=== PATIENT | female | born 1995 | race African-American/Black ===

== ENCOUNTER → 2017-09-25 | Emergency (ER) | payer MEDICAID ==
[~2017-09-25] VITALS: Ht 165.1 cm; Wt 69.4 kg
[~2017-09-25] MED LIST: CIPRO500 MG PO; IBUPROFEN600 MG ORAL; NKM; NORCO 5-325 TA1 EACH ORAL
[2017-09-25 12:46] LABS: BASOPHILS % (AUTO) 0.7 % (0.0-2.0); EOSINOPHILS % (AUTO) 6.1 % (0.0-3.0); HEMATOCRIT 38.2 % (37.0-47.0); HEMOGLOBIN 12.9 G/DL (12.0-16.0); LYMPHOCYTES % (AUTO) 29.7 % (20.0-45.0); MEAN CORPUSCULAR VOLUME 100 FL (80-99); MONOCYTES % (AUTO) 7.4 % (1.0-10.0); NEUTROPHILS % (AUTO) 56.1 % (45.0-75.0); PLATELET COUNT 151 K/UL (150-450); RED CELL DISTRIBUTION WIDTH 12.4 % (11.6-14.8); WHITE BLOOD COUNT 6.6 K/UL (4.8-10.8)
[2017-09-25 13:00] LABS: ANION GAP 10 mmol/L (5-15); BLOOD UREA NITROGEN 9 mg/dL (7-18); CALCIUM 8.5 MG/DL (8.5-10.1); CARBON DIOXIDE 25 MMOL/L (21-32); CHLORIDE 106 MMOL/L (98-107); CREATININE 0.7 MG/DL (0.55-1.30); POTASSIUM 3.7 MMOL/L (3.5-5.1); SODIUM 141 MMOL/L (136-145)
[2017-09-25 13:05] LABS: ALANINE AMINOTRANSFERASE 24 U/L (12-78); ALBUMIN 3.3 G/DL (3.4-5.0); ALKALINE PHOSPHATASE 59 U/L (46-116); ASPARTATE AMINO TRANSFERASE 16 U/L (15-37); BILIRUBIN,TOTAL 0.2 MG/DL (0.2-1.0)
[2017-09-25 13:12] LABS: APPEARANCE,URINE SLIGHTLY CLOUDY; BILIRUBIN, URINE NEGATIVE (NEGATIVE); GLUCOSE, URINE (UA) NEGATIVE (NEGATIVE); KETONES,URINE NEGATIVE (NEGATIVE); LEUKOCYTE ESTERASE ,URINE 1+ (NEGATIVE); NITRITE,URINE NEGATIVE (NEGATIVE); PH,URINE 8 (4.5-8.0); PROTEIN,URINE 2+ (NEGATIVE); UROBILINOGEN,URINE NORMAL MG/DL (0.0-1.0)
[2017-09-25 13:23] LABS: COLOR,URINE RED
--- NOTE | 2017-09-25 15:27 | Emergency Room Report ---
History of Present Illness General Chief Complaint: Complications Source: Patient Present Illness HPI This patient states she was 5 weeks . She states that she had a miscarriage and went to an outpatient clinic and was given misoprostal. She states that she took the misoprostal 4 days ago. She states that she had been bleeding moderately. However, now she states that she is only bleeding lightly. She states that she has had some cramping. She denies f/c/s, n/v/d, dysuria, hematuria. She has no other complaints. Allergies: Coded Allergies: No Known Allergies (Unverified , 09/12/14) Patient History Past Medical History: asthma Social History: Denies: smoking, alcohol use, drug use Last Menstrual Period: 08/10/17 : 2 Para: 0 Reviewed Nursing Documentation: PMH: Agreed, PSxH: Agreed Nursing Documentation-PMH Past Medical History: No Stated History Review of Systems All Other Systems: negative except mentioned in HPI Physical Exam Vital Signs Date Time Temp Pulse Resp B/P (MAP) Pulse Ox O2 Delivery O2 Flow Rate FiO2 09/25/17 11:15 98.6 74 16 109/67 97 Room Air Sp02 EP Interpretation: reviewed, normal General Appearance: no apparent distress, alert, GCS 15, non-toxic Head: normocephalic, atraumatic Eyes: bilateral eye normal inspection, bilateral eye PERRL ENT: hearing grossly normal, normal pharynx, no angioedema, normal voice Neck: full range of motion, supple/symm/no masses Respiratory: chest non-tender, lungs clear, normal breath sounds, speaking full sentences Cardiovascular #1: regular rate, rhythm, no edema Gastrointestinal: normal bowel sounds, soft, non-distended, no guarding, no rebound, tenderness - mild ttp in suprapubic and lower abdomen Rectal: deferred Musculoskeletal: back normal, gait/station normal, normal range of motion, non- tender Neurologic: alert, oriented x3, responsive, motor strength/tone normal, sensory intact, speech normal Psychiatric: judgement/insight normal, memory normal, mood/affect normal, no suicidal/homicidal ideation Skin: normal color, no rash, warm/dry, well hydrated Medical Decision Making ER Course This patient is s/p SAB. She had complained of cramping and bleeding. I was concerned for retained POC, however, there is no e/o this. The patient's pelvic us show no retained POC. HCG is 153. Laboratory w/u is unremarkable to include no e/o anemia. The patients physical exam was benign. Overall, this patient's evaluation was reassuring. The patient was instructed to f/u closely with the outpatient clinic to trend her HCG down to zero. The patient has disability paperwork that she asked me to fill out. She has no disability. I filled out the paperwork to reflect no disability. She seemed displeased but I am not sure why. She has no disability. The patient was given return precautions and f/u instructions. Laboratory Tests Test 09/25/17 11:20 09/25/17 11:50 Prothrombin Time 10.3 SEC (9.30-11.50) Prothrombin Time INR 1.0 (0.9-1.1) PTT 27 SEC (23-33) Sodium Level 141 MMOL/L (136-145) Potassium Level 3.7 MMOL/L (3.5-5.1) Chloride Level 106 MMOL/L (98-107) Carbon Dioxide Level 25 MMOL/L (21-32) Anion Gap 10 mmol/L (5-15) Blood Urea Nitrogen 9 mg/dL (7-18) Creatinine 0.7 MG/DL (0.55-1.30) Estimate Glomerular Filtration Rate > 60 mL/min (>60) Glucose Level 83 MG/DL (74-106) Calcium Level 8.5 MG/DL (8.5-10.1) Total Bilirubin 0.2 MG/DL (0.2-1.0) Aspartate Amino Transferase (AST) 16 U/L (15-37) Alanine Aminotransferase (ALT) 24 U/L (12-78) Alkaline Phosphatase 59 U/L (46-116) Total Protein 6.5 G/DL (6.4-8.2) Albumin 3.3 G/DL (3.4-5.0) L Globulin 3.2 g/dL Albumin/Globulin Ratio 1.0 (1.0-2.7) Human Chorionic Gonadotropin, Quant 153 mIU/mL (1-6) H White Blood Count 6.6 K/UL (4.8-10.8) Red Blood Count 3.80 M/UL (4.20-5.40) L Hemoglobin 12.9 G/DL (12.0-16.0) Hematocrit 38.2 % (37.0-47.0) Mean Corpuscular Volume 100 FL (80-99) H Mean Corpuscular Hemoglobin 34.0 PG (27.0-31.0) H Mean Corpuscular Hemoglobin Concent 33.8 G/DL (32.0-36.0) Red Cell Distribution Width 12.4 % (11.6-14.8) Platelet Count 151 K/UL (150-450) Mean Platelet Volume 10.0 FL (6.5-10.1) Neutrophils (%) (Auto) 56.1 % (45.0-75.0) Lymphocytes (%) (Auto) 29.7 % (20.0-45.0) Monocytes (%) (Auto) 7.4 % (1.0-10.0) Eosinophils (%) (Auto) 6.1 % (0.0-3.0) H Basophils (%) (Auto) 0.7 % (0.0-2.0) Urine Color Red Urine Appearance Slightly cloudy Urine pH 8 (4.5-8.0) Urine Specific [place] 1.010 (1.005-1.035) Urine Protein 2+ (NEGATIVE) H Urine Glucose (UA) Negative (NEGATIVE) Urine Ketones Negative (NEGATIVE) Urine Occult Blood 5+ (NEGATIVE) H Urine Nitrite Negative (NEGATIVE) Urine Bilirubin Negative (NEGATIVE) Urine Urobilinogen Normal MG/DL (0.0-1.0) Urine Leukocyte Esterase 1+ (NEGATIVE) H Urine RBC 60-80 /HPF (0 - 2) H Urine WBC 2-4 /HPF (0 - 2) Urine Squamous Epithelial Cells Few /LPF (NONE/OCC) Urine Bacteria Few /HPF (NONE) CT/MRI/US Diagnostic Results CT/MRI/US Diagnostic Results : Imaging Test Ordered: Pelvic US Impression Impression: No intrauterine visualized and no evidence of retained products of conception. Given stated clinical history, this most likely reflects completed therapeutic pharmacological . Differential considerations include very early and therefore nonvisible intrauterine , ectopic with the Trace free pelvic fluid, presumably physiologic Last Vital Signs Date Time Temp Pulse Resp B/P (MAP) Pulse Ox O2 Delivery O2 Flow Rate FiO2 09/25/17 11:15 98.6 74 16 109/67 97 Room Air Disposition: HOME, SELF-CARE Condition: Improved Scripts Hydrocodone Bit/Acetaminophen 5-325* (NORCO 5-325*) 1 Each Tablet 1 TAB ORAL Q6H Y for For Pain, #5 TAB 0 Refills Prov: MAICOL REID D.O. 09/25/17 Ibuprofen* (MOTRIN*) 600 Mg Tablet 600 MG ORAL Q8H Y for For Pain, #30 TAB 0 Refills Prov: MAICOL REID D.O. 09/25/17 Referrals: NOT CHOSEN [facility]/,REFERRING (PCP) MAICOL REID D.O. Sep 25, 2017 15:27
--- NOTE | 2017-09-25 16:07 | Diagnostic Imaging Report ---
Indication: Pain, positive test, recent pill ingestion Technique: Transabdominal and transvaginal images Comparison: none Findings: Uterus measures 8.9 cm in length by 4.4 cm AP. The endometrium measures 6 milliners thick. It is unremarkable in appearance. Unremarkable myometrium the left ovary measures 3.1 cm in length. The right ovary measures 2.6 cm in length. No adnexal mass demonstrated. Trace free cul-de-sac fluid is noted. Impression: No intrauterine visualized and no evidence of retained products of conception. Given stated clinical history, this most likely reflects completed therapeutic pharmacological . Differential considerations include very early and therefore nonvisible intrauterine , ectopic with the Trace free pelvic fluid, presumably physiologic
[2017-09-25 20:33] VITALS: BP 109/67
== END | disposition home or self-care (01) ==
LOC: EMR 11:35
DX: O20.9 Hemorrhage in early pregnancy, unspecified (principal)
CPT/HCPCS: 36415; 76801; 80053; 81003; 84702; 85025; 85610; 85730; 86900; 86901; 96360; 99284

== ENCOUNTER 2018-08-11 13:07 | Emergency (ER) | payer MEDICAID ==
[~2018-08-11] VITALS: Ht 165.1 cm; Wt 63.5 kg
[2018-08-11] MEDS ORDERED: Azithromycin 250mg tab ORAL ONE (13:30)
[2018-08-11] MEDS ORDERED: Lidocaine 1% MPF 10mg/ml 5ml INJ ONE (13:30)
--- NOTE | 2018-08-11 13:35 | Emergency Room Report ---
History of Present Illness General Chief Complaint: Vaginal Source: Patient Present Illness HPI 23-year-old female patient presents the ER complaining of vaginal discharge and "discomfort" with urinating. Reports concern for STI, states last sexual activity was 2 weeks ago, states that she did not use protection. Patient reports suprapubic discomfort during this time. Denies flank pain. Denies nausea vomiting. Reports foul-smelling odor. Denies fever, chest pain, shortness of breath. Reports last menstrual period earlier this month, states was normal. Denies hematuria. Denies bloody vaginal discharge. Patient reports history of BV in the past and states "I think it is BV". Allergies: Coded Allergies: No Known Allergies (Unverified , 09/12/14) Patient History Past Medical History: see triage record Last Menstrual Period: 07/31/2018 Now: No - unknown Reviewed Nursing Documentation: PMH: Agreed; PSxH: Agreed Nursing Documentation-PMH Past Medical History: No Stated History Review of Systems All Other Systems: negative except mentioned in HPI Physical Exam Vital Signs Date Time Temp Pulse Resp B/P (MAP) Pulse Ox O2 Delivery O2 Flow Rate FiO2 08/11/18 13:11 98.8 79 14 120/68 100 Room Air Sp02 EP Interpretation: reviewed, normal General Appearance: well appearing, no apparent distress, alert, GCS 15, non- toxic Head: normocephalic, atraumatic Eyes: bilateral eye normal inspection, bilateral eye PERRL ENT: hearing grossly normal, normal pharynx, no angioedema, normal voice, uvula midline, moist mucus membranes Neck: full range of motion Respiratory: lungs clear, normal breath sounds, no rhonchi, no respiratory distress, no accessory muscle use, no wheezing, speaking full sentences Cardiovascular #1: regular rate, rhythm, no edema Gastrointestinal: soft, no mass, non-distended, no guarding, no rebound, tenderness - Suprapubic Genitourinary: no CVA tenderness, ext genitalia/vag normal, no vertebral tenderness, os closed, other - no cervical motion tenderness; white thick discharge, no bleeding, malodorous Musculoskeletal: back normal, digits/nails normal, gait/station normal, normal range of motion, non-tender Neurologic: alert, oriented x3, responsive, motor strength/tone normal, sensory intact Psychiatric: mood/affect normal Skin: no rash Medical Decision Making PA Attestation Dr. Bryan is my supervising Physician whom patient management has been discussed with. Diagnostic Impression: Primary Impression: Trichomonas vaginitis Additional Impressions: Bacterial vaginosis Encounter for screening examination for sexually transmitted disease ER Course Pt. presents to the ED c/o STI. Ddx considered but are not limited to gonorrhea, chlamydia, cystitis, pyelonephritis, bacterial vaginosis, yeast infection, PID, ovarian torsion. Vital signs: are WNL, pt. is afebrile Ordered UA and abx. ER COURSE: UA results show no signs of UTI infection, does not require antibiotics Urine negative Wet mount prep shows positive Trichomonas and clue cells indicative of bacterial vaginosis, will provide patient with Flagyl at discharge. Advised patient not to drink alcohol taking medication. Provided patient with Rocephin and Azithromycin in the ER. Informed patient medications will cover for gonorrhea and chlamydia, needs further follow-up evaluation and possible treatment of other sexual transmitted infections. Follow-up with RECYCLING OPERATIONS MANAGER specialist. Provided with contact information. No cervical motion tenderness, low suspicion for PID. Advised to use safe sex practices including but not limited to use of condoms. Avoid sexual activity for the next 2 weeks. Instructed patient to follow up with STI clinic and/or PCP for STI evaluation and further treatment as necessary. Instructed patient to inform partners of needs for evaluation and treatment of possible infections. Do not drink alcohol while taking Flagyl. DISCHARGE: Patient is resting comfortably, in no acute distress, nontoxic appearing, talking without difficulty. Patient to take medications as instructed Will provide with patient care instructions and any necessary prescriptions. Care plan and follow-up instructions provided. Patient instructed to follow-up with primary care provider in 3 - 5 days. Patient questions asked and answered. Patient reports understanding and agreement to treatment plan. ER precautions given. Patient instructed to return to ER immediately for any new or worsening of symptoms including but not limited to increasing SOB, persistent fever. - Please note that this Emergency Department Report was dictated using [employer] coordinator technology software, occasionally this can lead to erroneous entry secondary to interpretation by the dictation equipment. Labs Test 08/11/18 13:20 Urine Color Pale yellow Urine Appearance Clear Urine pH 7 (4.5-8.0) Urine Specific [place] 1.010 (1.005-1.035) Urine Protein Negative (NEGATIVE) Urine Glucose (UA) Negative (NEGATIVE) Urine Ketones Negative (NEGATIVE) Urine Blood Negative (NEGATIVE) Urine Nitrite Negative (NEGATIVE) Urine Bilirubin Negative (NEGATIVE) Urine Urobilinogen Normal MG/DL (0.0-1.0) Urine Leukocyte Esterase 1+ (NEGATIVE) Urine RBC 0 /HPF (0 - 2) Urine WBC 2-4 /HPF (0 - 2) Urine Squamous Epithelial Cells Moderate /LPF (NONE/OCC) Urine Bacteria Few /HPF (NONE) Urine HCG, Qualitative Negative (NEGATIVE) Last Vital Signs Date Time Temp Pulse Resp B/P (MAP) Pulse Ox O2 Delivery O2 Flow Rate FiO2 08/11/18 13:11 98.8 79 14 120/68 100 Room Air Disposition: HOME, SELF-CARE Condition: Stable Scripts Acetaminophen* (TYLENOL EXTRA STRENGTH*) 500 Mg Tablet 500 MG ORAL Q8H PRN for Prn Headache/Temp > 101, #30 TAB 0 Refills Prov: Laith Schwartz 08/11/18 Metronidazole* (FLAGYL*) 500 Mg Tablet 500 MG ORAL BID for 7 Days, #14 TAB Prov: Laith Schwartz 08/11/18 Patient Instructions: Bacterial Vaginosis, [place]-[id number], Sexually Transmitted Disease, Trichomoniasis Additional Instructions: Followup with primary care provider and followup with STI clinic for further evaluation and treatment. Followup with contract administration specialist. Alert sexual partners for need for evaluation and treatment. Wear condoms during sex. Avoid sexual activity for 2 weeks. Drink plenty of fluids. Patient questions asked and answered. ER precautions given, patient instructed to return to ER immediately for any new or worsening of symptoms. Laith Schwartz Aug 11, 2018 13:35
[2018-08-11 13:41] LABS: APPEARANCE,URINE CLEAR; BILIRUBIN, URINE NEGATIVE (NEGATIVE); COLOR,URINE PALE YELLOW; GLUCOSE, URINE (UA) NEGATIVE (NEGATIVE); KETONES,URINE NEGATIVE (NEGATIVE); LEUKOCYTE ESTERASE ,URINE 1+ (NEGATIVE); NITRITE,URINE NEGATIVE (NEGATIVE); PH,URINE 7 (4.5-8.0); PROTEIN,URINE NEGATIVE (NEGATIVE); UROBILINOGEN,URINE NORMAL MG/DL (0.0-1.0)
[2018-08-11 13:49] VITALS: BP 120/68
[2018-08-11] MEDS ORDERED: Fluconazole 100mg tab ORAL ONE (14:15)
[2018-08-11] MEDS ORDERED: FLAGYL500 MG ORAL (14:33)
[2018-08-11] MEDS ORDERED: TYLENOL EXTRA500 MG ORAL (14:33)
[2018-08-11 14:40] VITALS: BP 124/75
== END 2018-08-11 14:41 | disposition home or self-care (01) ==
LOC: EMR 13:40
DX: A59.01 Trichomonal vulvovaginitis (principal); N76.0 Acute vaginitis; B96.89 Other specified bacterial agents as the cause of diseases classified elsewhere; Z11.3 Encounter for screening for infections with a predominantly sexual mode of transmission
CPT/HCPCS: 81003; 81025; 87210; 96372; 99283; J0696; Q0144

== ENCOUNTER 2019-04-25 16:53 | Emergency (ER) | payer MEDICAID ==
[~2019-04-25] VITALS: Ht 165.1 cm; Wt 74.8 kg
[~2019-04-25 16:53] MED LIST changes: +FLAGYL500 MG ORAL; +TYLENOL EXTRA500 MG ORAL
[2019-04-25 17:21] VITALS: BP 113/75
--- NOTE | 2019-04-25 17:21 | NUR ---
ED Nurse Note:pt. came with c/o vaginal discharge for some time with burning
--- NOTE | 2019-04-25 17:46 | NUR ---
ED Nurse Note:vaginal exam was done by ER MD in my presence and urine with swab was sent to labs
[2019-04-25 17:57] LABS: APPEARANCE,URINE CLOUDY; BILIRUBIN, URINE NEGATIVE (NEGATIVE); GLUCOSE, URINE (UA) NEGATIVE (NEGATIVE); KETONES,URINE NEGATIVE (NEGATIVE); LEUKOCYTE ESTERASE ,URINE 1+ (NEGATIVE); NITRITE,URINE NEGATIVE (NEGATIVE); PH,URINE 8 (4.5-8.0); PROTEIN,URINE 1+ (NEGATIVE); UROBILINOGEN,URINE 1 MG/DL (0.0-1.0)
[2019-04-25 17:59] LABS: COLOR,URINE YELLOW
[2019-04-25] MEDS ORDERED: Lidocaine 1% MPF 10mg/ml 5ml INJ ONE (18:45)
[2019-04-25] MEDS ORDERED: Azithromycin 250mg tab ORAL ONE (18:45)
[2019-04-25] MEDS ORDERED: CEPHALEXIN500 MG ORAL (18:55)
--- NOTE | 2019-04-25 19:00 | NUR ---
ER DISCHARGE NOTE: Patient is cleared to be discharged per ERMD, pt is aox4, on room air, with stable vital signs. pt was given dc and prescription instructions, pt was able to verbalize understanding, pt is able to ambulate with steady gait. pt took all belongings.
[2019-04-25 19:15] VITALS: BP 113/75
--- NOTE | 2019-04-25 23:24 | Emergency Room Report ---
History of Present Illness General Chief Complaint: Vaginal Source: Patient Present Illness HPI 23-year-old female presents ED for evaluation. Patient complaining of vaginal discharge x1 month. States that the discharge is white. States it is not foul- smelling. Denies dysuria or hematuria. Denies pain. States that she has had unprotected sex. No other aggravating relieving factors. Denies any other associated symptoms Allergies: Coded Allergies: No Known Allergies (Unverified , 09/12/14) Patient History Past Medical History: none Past Surgical History: none Pertinent Family History: none Social History: Denies: smoking, alcohol use, drug use Last Menstrual Period: 2 weeks ago Now: No Immunizations: UTD Reviewed Nursing Documentation: PMH: Agreed; PSxH: Agreed Nursing Documentation-PMH Past Medical History: No Stated History Review of Systems All Other Systems: negative except mentioned in HPI Physical Exam Vital Signs Date Time Temp Pulse Resp B/P (MAP) Pulse Ox O2 Delivery O2 Flow Rate FiO2 04/25/19 17:00 99.0 83 15 113/75 (88) 99 Room Air Sp02 EP Interpretation: reviewed, normal General Appearance: no apparent distress, alert, GCS 15, non-toxic Head: normocephalic Eyes: bilateral eye normal inspection, bilateral eye PERRL ENT: normal ENT inspection Neck: normal inspection Respiratory: normal inspection Cardiovascular #1: normal inspection Gastrointestinal: normal bowel sounds, non tender, soft, non-distended, no guarding, no rebound Rectal: deferred Genitourinary: no CVA tenderness, other - fighting vehicle systems maintainer present. white discharge noted. no CMT Musculoskeletal: back normal Neurologic: alert, oriented x3, responsive, motor strength/tone normal, sensory intact, speech normal Psychiatric: normal inspection Skin: no rash Lymphatic: normal inspection Medical Decision Making Diagnostic Impression: Primary Impression: UTI (urinary tract infection) Qualified Codes: N39.0 - Urinary tract infection, site not specified Additional Impression: Vaginal discharge ER Course Hospital Course 23-year-old female presents ED with discharge. Differential diagnoses include: trichimonas, gonorrhea, chlamydia Clinical course Patient placed on stretcher. After initial history physical exam reveals a female in no acute distress. Pl Sql Developer present. On pelvic exam there is some white discharge. No CMT. Not foul-smelling. I ordered UA, wet mount UA + bacteria. wet mount shows no clue cells We will treat clinically for gonorrhea/Chlamydia will provide prescriptions for UTI. Safe for discharge for close outpatient follow-up. Will provide referrals Given azithromycin/Rocephin in ED Diagnosis - UTI, vaginal discharge Stable and discharged home with prescriptions for Rx Keflex. Instructed to followup with PMD. Return to ED if symptoms recur or worsen Labs Test 04/25/19 17:35 Urine Color Yellow Urine Appearance Cloudy Urine pH 8 (4.5-8.0) Urine Specific [place] 1.010 (1.005-1.035) Urine Protein 1+ (NEGATIVE) Urine Glucose (UA) Negative (NEGATIVE) Urine Ketones Negative (NEGATIVE) Urine Blood Negative (NEGATIVE) Urine Nitrite Negative (NEGATIVE) Urine Bilirubin Negative (NEGATIVE) Urine Urobilinogen 1 MG/DL (0.0-1.0) Urine Leukocyte Esterase 1+ (NEGATIVE) Urine RBC 0-2 /HPF (0 - 2) Urine WBC 2-4 /HPF (0 - 2) Urine Squamous Epithelial Cells Many /LPF (NONE/OCC) Urine Amorphous Sediment Many /LPF (NONE) Urine Bacteria Moderate /HPF (NONE) Urine HCG, Qualitative Negative (NEGATIVE) Last Vital Signs Date Time Temp Pulse Resp B/P (MAP) Pulse Ox O2 Delivery O2 Flow Rate FiO2 04/25/19 19:15 99.0 69 15 113/75 99 Room Air Status: improved Disposition: HOME, SELF-CARE Condition: Stable Scripts Cephalexin* (KEFLEX*) 500 Mg Capsule 500 MG ORAL EVERY 6 HOURS for 7 Days, CAP Prov: Rickie Howard MD 04/25/19 Referrals: NOT CHOSEN [facility]/,REFERRING (PCP) Cristina Booker [facility] Patient Instructions: Cervicitis, [id number] Rickie Howard MD Apr 25, 2019 23:24
== END 2019-04-25 19:17 | disposition home or self-care (01) ==
LOC: EMR 17:38
DX: N39.0 Urinary tract infection, site not specified (principal); N89.8 Other specified noninflammatory disorders of vagina
CPT/HCPCS: 81003; 81025; 87086; 87210; 96372; 99283; J0696; Q0144

== ENCOUNTER 2019-08-25 08:57 | Emergency (ER) | payer SELFPAY ==
[~2019-08-25] VITALS: Ht 165.1 cm; Wt 68.0 kg
[~2019-08-25 08:57] MED LIST changes: +CEPHALEXIN500 MG ORAL
[2019-08-25 09:13] VITALS: BP 114/72
--- NOTE | 2019-08-25 09:14 | NUR ---
ED Nurse Note:pt. came with possible UTI and blood in discharge
[2019-08-25 09:40] LABS: APPEARANCE,URINE CLEAR; BILIRUBIN, URINE NEGATIVE (NEGATIVE); GLUCOSE, URINE (UA) NEGATIVE (NEGATIVE); KETONES,URINE 1+ (NEGATIVE); LEUKOCYTE ESTERASE ,URINE NEGATIVE (NEGATIVE); NITRITE,URINE NEGATIVE (NEGATIVE); PH,URINE 5 (4.5-8.0); PROTEIN,URINE 1+ (NEGATIVE); UROBILINOGEN,URINE 1 MG/DL (0.0-1.0)
[2019-08-25 09:45] LABS: COLOR,URINE YELLOW
--- NOTE | 2019-08-25 10:40 | Emergency Room Report ---
History of Present Illness General Chief Complaint: Female Urogenital Problems Source: Patient Present Illness HPI 24-year-old female presents with vaginal discharge yesterday and slight tinged blood and pain with urination. Patient reports she is a miscarriage 2 abortions with last menstrual period August 06. Patient symptoms started last night. Patient does report new sexual partners. She does not have any known history of gonorrhea or chlamydia. Patient denies any vaginal bleeding at this time. She denies any discharge at this time. Patient denies any abdominal pain, nausea, vomiting, diarrhea, constipation. Patient's had no abdominal surgeries. Allergies: Coded Allergies: No Known Allergies (Unverified , 09/12/14) Patient History Last Menstrual Period: 08/06/19 Nursing Documentation-[facility] Past Medical History: No Stated History Review of Systems Constitutional: Denies: chills, fever Respiratory: Denies: cough, shortness of breath Cardiovascular: Denies: chest pain, palpitations Gastrointestinal: Denies: diarrhea, vomiting Genitourinary: Reports: discharge, dysuria; Denies: hematuria, pain Musculoskeletal: Denies: joint swelling Skin: Denies: rash, lesions Neurological: Denies: headache, dizziness Physical Exam Vital Signs Date Time Temp Pulse Resp B/P (MAP) Pulse Ox O2 Delivery O2 Flow Rate FiO2 08/25/19 09:03 98.1 73 16 114/72 (86) 98 Room Air Sp02 EP Interpretation: reviewed General Appearance: well appearing, no apparent distress, non-toxic Head: normocephalic, atraumatic Eyes: bilateral eye normal inspection ENT: hearing grossly normal, EOM grossly intact, moist mucus membranes Neck: supple Respiratory: lungs clear, normal breath sounds, no respiratory distress, speaking full sentences Cardiovascular #1: regular rate, rhythm, normal capillary refill Cardiovascular #2: 2+ radial (R), 2+ radial (L) Gastrointestinal: soft, non-distended Rectal: deferred Genitourinary: normal inspection, adnexa normal, bladder normal, cervix normal , ext genitalia/vag normal, os closed, other - No vaginal discharge Musculoskeletal: moves extm spontaneously, no lower extremity edema Neurologic: grossly normal Psychiatric: mood/affect normal Skin: warm/dry, normal turgor Medical Decision Making Diagnostic Impression: Primary Impression: Dysuria Additional Impression: Vaginal discharge ER Course 24-year-old female presents with vaginal discharge yesterday and slight tinged blood and pain with urination. Patient reports she is a miscarriage 2 abortions with last menstrual period August 06. Patient symptoms started last night. Patient does report new sexual partners. She does not have any known history of gonorrhea or chlamydia. Patient denies any vaginal bleeding at this time. She denies any discharge at this time. Patient denies any abdominal pain, nausea, vomiting, diarrhea, constipation. Patient's had no abdominal surgeries. Exam is nonspecific, no vaginal discharge, no tenderness Patient was Advised treatment for gonorrhea and chlamydia at this time due to symptoms.. However, patient denied. She is requesting to be tested and treated if positive. Patient recommended to follow-up with primary care doctor and/or health clinic for testing.. Urine analysis negative for infections. Laboratory Tests Test 08/25/19 09:20 Urine Color Yellow Urine Appearance Clear Urine pH 5 (4.5-8.0) Urine Specific [place] 1.025 (1.005-1.035) Urine Protein 1+ (NEGATIVE) H Urine Glucose (UA) Negative (NEGATIVE) Urine Ketones 1+ (NEGATIVE) H Urine Blood 1+ (NEGATIVE) H Urine Nitrite Negative (NEGATIVE) Urine Bilirubin Negative (NEGATIVE) Urine Urobilinogen 1 MG/DL (0.0-1.0) H Urine Leukocyte Esterase Negative (NEGATIVE) Urine RBC 0-2 /HPF (0 - 2) Urine WBC 0 /HPF (0 - 2) Urine Squamous Epithelial Cells Few /LPF (NONE/OCC) Urine Bacteria Few /HPF (NONE) Urine Mucus Moderate /LPF (NONE/OCC) H Urine HCG, Qualitative Negative (NEGATIVE) Lab Results Impression Negative for UTI Last Vital Signs Date Time Temp Pulse Resp B/P (MAP) Pulse Ox O2 Delivery O2 Flow Rate FiO2 08/25/19 09:13 98.1 16 114/72 98 Room Air 08/25/19 09:03 73 Disposition: HOME, SELF-CARE Condition: Stable Referrals: [facility] Patient Instructions: Vaginitis Additional Instructions: Please follow-up with your MANAGER CASE MANAGEMENT or women's health clinic in 2 to 3 days for reevaluation. Wade Veliz M.D. Aug 25, 2019 10:40
--- NOTE | 2019-08-25 10:50 | NUR ---
ER DISCHARGE NOTE: Patient is cleared to be discharged per ERMD, pt is aox4, on room air, with stable vital signs. pt was given dc instructions, pt was able to verbalize understanding, pt is able to ambulate with steady gait. pt took all belongings.
[2019-08-25 10:54] VITALS: BP 114/72
== END 2019-08-25 10:50 | disposition home or self-care (01) ==
LOC: EMR 10:50
DX: R30.0 Dysuria (principal); N89.8 Other specified noninflammatory disorders of vagina
CPT/HCPCS: 81001; 81025; 99282

== ENCOUNTER 2020-06-05 06:28 | Emergency (ER) | payer MEDICAID ==
[~2020-06-05] VITALS: Ht 165.1 cm; Wt 80.7 kg
[2020-06-05] MEDS ORDERED: VITAFOL-OB+DHA1 EACH PO (06:34)
[2020-06-05 06:40] VITALS: BP 126/72
--- NOTE | 2020-06-05 06:40 | NUR ---
ED Nurse Note: pt ambulated into ed from home CO lower abd pain 02/26 since 0300 with curd-like green vaginal discharge. Pt states this has occured in the past and previous hospital visit determined a yeast infection. Pt aao x 4, ambulates with steady gait, VSS no ss of distress noted. Pt placed in gown in bed. Awaiting ERMD at bedside. Awaiting further orders. will continue to monitor.
--- NOTE | 2020-06-05 06:47 | NUR ---
ED Nurse Note: UA sent to lab
--- NOTE | 2020-06-05 07:00 | NUR ---
ED Nurse Note: All blood work sent to lab
[2020-06-05 07:02] LABS: APPEARANCE,URINE CLEAR; BILIRUBIN, URINE NEGATIVE (NEGATIVE); COLOR,URINE PALE YELLOW; GLUCOSE, URINE (UA) NEGATIVE (NEGATIVE); KETONES,URINE NEGATIVE (NEGATIVE); LEUKOCYTE ESTERASE ,URINE 3+ (NEGATIVE); NITRITE,URINE NEGATIVE (NEGATIVE); PH,URINE 6 (4.5-8.0); PROTEIN,URINE NEGATIVE (NEGATIVE); UROBILINOGEN,URINE NORMAL MG/DL (0.0-1.0)
--- NOTE | 2020-06-05 07:04 | NUR ---
HAND-OFF: Report given to JULIETTE Wilcox.
--- NOTE | 2020-06-05 07:05 | NUR ---
ED Nurse Note: report received from JULIETTE Elliott. pt seen in bed, awake, alert, no acute distress is noted. will continue to monitor.
[2020-06-05 07:14] LABS: BASOPHILS % (AUTO) 1.4 % (0.0-2.0); EOSINOPHILS % (AUTO) 4.7 % (0.0-3.0); HEMATOCRIT 36.8 % (37.0-47.0); HEMOGLOBIN 12.8 G/DL (12.0-16.0); LYMPHOCYTES % (AUTO) 16.3 % (20.0-45.0); MEAN CORPUSCULAR VOLUME 92 FL (80-99); MONOCYTES % (AUTO) 6.6 % (1.0-10.0); PLATELET COUNT 143 K/UL (150-450); RED BLOOD COUNT 3.98 M/UL (4.20-5.40); RED CELL DISTRIBUTION WIDTH 12.6 % (11.6-14.8); WHITE BLOOD COUNT 11.2 K/UL (4.8-10.8)
--- NOTE | 2020-06-05 07:18 | NUR ---
ED Nurse Note: pelvic exam done by ERMD, / wetmount sample collected and sent to lab.
[2020-06-05 07:36] LABS: ANION GAP 10 mmol/L (5-15); BLOOD UREA NITROGEN 10 mg/dL (7-18); CALCIUM 8.6 MG/DL (8.5-10.1); CARBON DIOXIDE 22 MMOL/L (21-32); CHLORIDE 104 MMOL/L (98-107); CREATININE 0.8 MG/DL (0.55-1.30); POTASSIUM 3.7 MMOL/L (3.5-5.1); SODIUM 136 MMOL/L (136-145)
[2020-06-05 07:49] LABS: ALANINE AMINOTRANSFERASE 65 U/L (12-78); ALBUMIN 3.1 G/DL (3.4-5.0); ALBUMIN/GLOBULIN RATIO 0.9 (1.0-2.7); ALKALINE PHOSPHATASE 57 U/L (46-116); ASPARTATE AMINO TRANSFERASE 29 U/L (15-37); BILIRUBIN,TOTAL 0.2 MG/DL (0.2-1.0)
--- NOTE | 2020-06-05 07:50 | NUR ---
ED Nurse Note: ultrasound is being done at bedside
--- NOTE | 2020-06-05 08:49 | Diagnostic Imaging Report ---
EXAM: US , Transvaginal CLINICAL HISTORY: ABD PAIN TECHNIQUE: Real-time transvaginal obstetrical ultrasound of the maternal pelvis and a first trimester with image documentation. Transvaginal imaging was used for better evaluation of the fetus and adnexa. COMPARISON: No relevant prior studies available. FINDINGS: Single, live intrauterine gestation with an estimated gestational age of 19 weeks 2 days. heart rate is documented at 141 bpm. The cervix is closed and measures 3.1 cm. lie cephalic. Normal appearing amniotic fluid however, no BRENDA was calculated. IMPRESSION: Single, live intrauterine gestation with an estimated gestational age of 19 weeks 2 days. Estimated delivery date October 28, 2020. heart rate: 141 bpm. Closed cervix measuring 3.1 cm.
[2020-06-05] MEDS ORDERED: FLAGYL500 MG ORAL (09:19)
[2020-06-05] MEDS ORDERED: Lidocaine 1% MPF 10mg/ml 5ml INJ ONE (09:30)
[2020-06-05] MEDS ORDERED: Azithromycin 250mg tab ORAL ONE (09:30)
--- NOTE | 2020-06-05 09:35 | Emergency Room Report ---
History of Present Illness General Chief Complaint: Female Urogenital Problems Source: Patient Present Illness HPI 24-year-old female presents with vaginal discharge x3 weeks. Also some cramping pain. Dull, 7 out of 10, nonradiating. States she is about 20 weeks based on last ultrasound. Denies spotting or bleeding. States that she is concerned for STD and trichomonas. States the discharge is yellow/green foul- smelling. Denies dysuria or hematuria. No other aggravating relieving factors. Denies any other associated symptoms Allergies: Coded Allergies: No Known Allergies (Unverified , 09/12/14) COVID-19 Screening Contact w/high risk pt: No Experienced COVID-19 symptoms?: No COVID-19 Testing performed SNACK STEWARDESS: No Patient History Past Medical History: none Past Surgical History: none Pertinent Family History: none Social History: Denies: smoking, alcohol use, drug use Last Menstrual Period: december 2019 Now: Yes Immunizations: UTD Reviewed Nursing Documentation: PMH: Agreed; PSxH: Agreed Nursing Documentation-PMH Past Medical History: No History, Except For Review of Systems All Other Systems: negative except mentioned in HPI Physical Exam Vital Signs Date Time Temp Pulse Resp B/P (MAP) Pulse Ox O2 Delivery O2 Flow Rate FiO2 06/05/20 06:30 97.9 92 18 126/72 (90) 99 Room Air Sp02 EP Interpretation: reviewed, normal General Appearance: no apparent distress, alert, GCS 15, non-toxic Head: normocephalic, atraumatic Eyes: bilateral eye normal inspection, bilateral eye PERRL ENT: hearing grossly normal, normal pharynx, no angioedema, normal voice Neck: full range of motion, supple/symm/no masses Respiratory: chest non-tender, lungs clear, normal breath sounds, speaking full sentences Cardiovascular #1: regular rate, rhythm, no edema Cardiovascular #2: 2+ carotid (R), 2+ carotid (L), 2+ radial (R), 2+ radial (L), 2+ dorsalis pedis (R), 2+ dorsalis pedis (L) Gastrointestinal: normal bowel sounds, non tender, soft, non-distended, no guarding, no rebound Rectal: deferred Genitourinary: normal inspection, no CVA tenderness, other - Senior Security Architect present. No CMT. Yellowish/green discharge noted Musculoskeletal: back normal, normal range of motion, gait/station normal, non- tender Neurologic: alert, motor strength/tone normal, oriented x3, sensory intact, responsive, speech normal Psychiatric: judgement/insight normal, memory normal, mood/affect normal, no suicidal/homicidal ideation Reflexes: 3+ bicep (R), 3+ bicep (L), 3+ tricep (R), 3+ tricep (L), 3+ knee (R), 3+ knee (L) Skin: no rash Lymphatic: no adenopathy Medical Decision Making Diagnostic Impression: Primary Impression: Threatened miscarriage Additional Impression: Vaginal discharge ER Course Hospital Course 24-year-old female presents to ED complaining of lower abdominal pain with discharge. about 20 weeks Differential diagnoses include: gastrits, gastroenterits, ectopic , ovarian torsion/cyst, UTI Clinical course Patient placed on stretcher in ED. After initial history and physical I ordered labs, and US meat pumper present. Pelvic exam showed no CMT. No adnexal tenderness. yellow/greenish discharge noted and sent for wet mount Labs-no leukocytosis, electrolytes okay, beta hCG + Ultrasound shows IUP about 19 weeks with heart rate Mount shows no clue cells no trichomonas no yeast I discussed findings with patient. Does not appear to be trichomonas or BV. Patient states she was previously tested for gonorrhea/chlamydia. However given risk for STD we will treat empirically. Given Rocephin and azithromycin in ED. Will discharge with Flagyl. Recommend close follow-up with PMD/MANAGER SOFTWARE Diagnosis -threatened miscarriage, vaginal discharge Stable and discharged to home with Rx flagyl. Followup with PMD/MANAGER [employer]. Return to ED if symptoms recur or worsen Laboratory Tests Test 06/05/20 06:45 06/05/20 06:55 Urine Color Pale yellow Urine Appearance Clear Urine pH 6 (4.5-8.0) Urine Specific Nabb 1.025 (1.005-1.035) Urine Protein Negative (NEGATIVE) Urine Glucose (UA) Negative (NEGATIVE) Urine Ketones Negative (NEGATIVE) Urine Blood 1+ (NEGATIVE) H Urine Nitrite Negative (NEGATIVE) Urine Bilirubin Negative (NEGATIVE) Urine Urobilinogen Normal MG/DL (0.0-1.0) Urine Leukocyte Esterase 3+ (NEGATIVE) H Urine RBC 2-4 /HPF (0 - 2) H Urine WBC 2-4 /HPF (0 - 2) Urine Squamous Epithelial Cells Moderate /LPF (NONE/OCC) H Urine Bacteria Few /HPF (NONE) Urine Mucus Few /LPF (NONE/OCC) H Urine HCG, Qualitative Positive (NEGATIVE) White Blood Count 11.2 K/UL (4.8-10.8) H Red Blood Count 3.98 M/UL (4.20-5.40) L Hemoglobin 12.8 G/DL (12.0-16.0) Hematocrit 36.8 % (37.0-47.0) L Mean Corpuscular Volume 92 FL (80-99) Mean Corpuscular Hemoglobin 32.2 PG (27.0-31.0) H Mean Corpuscular Hemoglobin Concent 34.8 G/DL (32.0-36.0) Red Cell Distribution Width 12.6 % (11.6-14.8) Platelet Count 143 K/UL (150-450) L Mean Platelet Volume 10.0 FL (6.5-10.1) Neutrophils (%) (Auto) 71.0 % (45.0-75.0) Lymphocytes (%) (Auto) 16.3 % (20.0-45.0) L Monocytes (%) (Auto) 6.6 % (1.0-10.0) Eosinophils (%) (Auto) 4.7 % (0.0-3.0) H Basophils (%) (Auto) 1.4 % (0.0-2.0) Sodium Level 136 MMOL/L (136-145) Potassium Level 3.7 MMOL/L (3.5-5.1) Chloride Level 104 MMOL/L (98-107) Carbon Dioxide Level 22 MMOL/L (21-32) Anion Gap 10 mmol/L (5-15) Blood Urea Nitrogen 10 mg/dL (7-18) Creatinine 0.8 MG/DL (0.55-1.30) Estimat Glomerular Filtration Rate > 60 mL/min (>60) Glucose Level 94 MG/DL (74-106) Calcium Level 8.6 MG/DL (8.5-10.1) Total Bilirubin 0.2 MG/DL (0.2-1.0) Aspartate Amino Transf (AST/SGOT) 29 U/L (15-37) Alanine Aminotransferase (ALT/SGPT) 65 U/L (12-78) Alkaline Phosphatase 57 U/L (46-116) Total Protein 6.4 G/DL (6.4-8.2) Albumin 3.1 G/DL (3.4-5.0) L Globulin 3.3 g/dL Albumin/Globulin Ratio 0.9 (1.0-2.7) L Lipase 96 U/L (73-393) Human Chorionic Gonadotropin, Quant 87825 mIU/mL (1-6) H CT/MRI/US Diagnostic Results CT/MRI/US Diagnostic Results : Imaging Test Ordered: OB US Impression CLINICAL HISTORY: ABD PAIN TECHNIQUE: Real-time transvaginal obstetrical ultrasound of the maternal pelvis and a first trimester with image documentation. Transvaginal imaging was used for better evaluation of the fetus and adnexa. COMPARISON: No relevant prior studies available. FINDINGS: Single, live intrauterine gestation with an estimated gestational age of 19 weeks 2 days. heart rate is documented at 141 bpm. The cervix is closed and measures 3.1 cm. lie cephalic. Normal appearing amniotic fluid however, no BRENDA was calculated. IMPRESSION: Single, live intrauterine gestation with an estimated gestational age of 19 weeks 2 days. Estimated delivery date October 28, 2020. heart rate: 141 bpm. Closed cervix measuring 3.1 cm. Last Vital Signs Date Time Temp Pulse Resp B/P (MAP) Pulse Ox O2 Delivery O2 Flow Rate FiO2 06/05/20 06:40 97.9 92 18 126/72 99 Room Air Status: improved Disposition: HOME, SELF-CARE Condition: Stable Scripts Metronidazole* (FLAGYL*) 500 Mg Tablet 500 MG ORAL BID for 7 Days, #14 TAB Prov: Rickie Howard MD 06/05/20 Patient Instructions: Trichomoniasis Rickie Howard MD Jun 05, 2020 09:35
[2020-06-05 09:37] VITALS: BP 130/70
--- NOTE | 2020-06-05 09:37 | NUR ---
ER DISCHARGE NOTE: Patient is cleared to be discharged per ERMD, pt is aox4, on room air, with stable vital signs. pt was given dc and prescription instructions, pt was able to verbalize understanding, pt id band and iv site removed without complications. pt is able to ambulate with steady gait. pt took all belongings.
== END 2020-06-05 09:37 | disposition home or self-care (01) ==
LOC: EMR 06:52
DX: O20.0 Threatened abortion (principal); Z3A.19 19 weeks gestation of pregnancy; N89.8 Other specified noninflammatory disorders of vagina
CPT/HCPCS: 36415; 76805; 76817; 80053; 81003; 81025; 83690; 84702; 85025; 87210; 96372; J0696; Q0144; Z7502; 99284